=== PATIENT | male | born 1955 | race Caucasian/White ===

== ENCOUNTER 2020-09-08 23:05 | Emergency (ER) | payer MEDICARE ==
[~2020-09-08] VITALS: Ht 172.7 cm; Wt 93.0 kg
[2020-09-08] MEDS ORDERED: MORPHINE SULFATE INJ 4 MG/ML INJ 1ML IV STA (23:17)
[2020-09-08] MEDS ORDERED: ONDANSETRON HCL INJ 2MG/ML 2ML 2 MG/ML VIAL IV STA (23:19)
[2020-09-08 23:37] LABS: BASOPHILS # (AUTO) 0.1 (0.0-0.1); BASOPHILS % 0.5 % (0.0-1.0); EOSINOPHILS # (AUTO) 0.3 (0.0-0.4); EOSINOPHILS % 3.1 % (0.0-6.0); HEMATOCRIT 42.3 % (38.2-49.6); HEMOGLOBIN 14.2 g/dL (14.0-18.0); MEAN CORPUSCULAR HEMOGLOBIN 33.2 pg (28-32); MEAN CORPUSCULAR HGB CONC 33.6 g/dL (31-35); MEAN CORPUSCULAR VOLUME 98.8 fL (81-99); MONOCYTES # (AUTO) 0.8 (0.2-0.8); MONOCYTES % 8.2 % (4.4-11.3); NEUTROPHILS # (AUTO) 6.6 (2.1-6.9); NEUTROPHILS % 67.6 % (38.7-80.0); PLATELET COUNT 235 x10e3/uL (140-360); RED BLOOD COUNT 4.28 x10e6/uL (4.3-5.7); RED CELL DISTRIBUTION WIDTH 12.3 % (11.7-14.4)
[2020-09-08 23:53] LABS: ALBUMIN/GLOBULIN RATIO 1.7 (0.8-2.0); ANION GAP 13.8 mmol/L (8-16); CALCIUM 8.5 mg/dL (8.4-10.2); CREATININE, SERUM 1.23 mg/dL (0.72-1.25); POTASSIUM 3.8 mmol/L (3.5-5.1)
[2020-09-09] MEDS ORDERED: ONDANSETRON HCL INJ 2MG/ML 2ML 2 MG/ML VIAL IV STA (00:50)
[2020-09-09 03:11] LABS: AMPHETAMINES SCREEN,URINE NEGATIVE (NEGATIVE); BENZODIAZEPINES SCREEN,URINE NEGATIVE (NEGATIVE); PHENCYCLIDINE SCREEN,URINE NEGATIVE (NEGATIVE); URINE UROBILINOGEN 1 mg/dL (0.2 - 1)
[2020-09-09 03:12] LABS: CLARITY,URINE CLOUDY (CLEAR); COLOR,URINE YELLOW (YELLOW); KETONES,URINE NEGATIVE (NEGATIVE); LEUKOCYTE ESTERASE ,URINE NEGATIVE (NEGATIVE); NITRITE,URINE NEGATIVE (NEGATIVE); PROTEIN,URINE DIPSTICK NEGATIVE (NEGATIVE)
[2020-09-09 03:15] LABS: AMORPHOUS SEDIMENT,URINE MANY (FEW); BACTERIA,URINE MANY /HPF; EPITHELIAL CELLS,URINE FEW /LPF; RBC,URINE 0-5 /HPF (0-5); WBC,URINE (MAN) 0-5 /HPF (0-5)
[2020-09-09] MEDS ORDERED: MORPHINE SULFATE INJ 4 MG/ML INJ 1ML IV ONE (03:45)
[2020-09-09 03:47] VITALS: BP 129/80
== END 2020-09-09 05:15 | disposition home or self-care (01) ==
LOC: ER 23:09
DX: S46.212A Strain of muscle, fascia and tendon of other parts of biceps, left arm, initial encounter (principal); W17.89XA Other fall from one level to another, initial encounter; Y93.H3 Activity, building and construction; F17.210 Nicotine dependence, cigarettes, uncomplicated
CPT/HCPCS: 36415; 70450; 71045; 72125; 72170; 73030; 73060; 73080; 80053; 80307; 80320; 81001; 85025; 93005; 99284; J2270 ×2; J2405 ×2

== ENCOUNTER 2024-12-21 15:40 | Emergency (ER) | payer MEDICARE ==
[~2024-12-21] VITALS: Ht 172.7 cm; Wt 99.9 kg
[2024-12-21 16:32] VITALS: PULSE 96; RESP 16
[2024-12-21] MEDS: ALBUTEROL/IPRATROPIUM 3 ML NEB NEB ONE (16:32)
[2024-12-21] MEDS ORDERED: VENTOLIN HFA18 GM INH (17:39)
[2024-12-21] MEDS ORDERED: DEXAMETHASONE SOD PHOS INJ 4 MG/ML SDV ONE (17:53)
[2024-12-21 17:59] VITALS: PULSE 97; RESP 18; TEMP 97.7; O2SAT 98
[2024-12-21] MEDS: DEXAMETHASONE SOD PHOS 10 MG/1 ML VIAL IM ONE (18:02)
== END 2024-12-21 18:03 | disposition home or self-care (01) ==
LOC: FSED 15:52
DX: R05.9 Cough, unspecified (principal); B34.9 Viral infection, unspecified; J98.01 Acute bronchospasm; E78.5 Hyperlipidemia, unspecified; Z11.52 Encounter for screening for COVID-19
CPT/HCPCS: 0223U; 71045; 83518; 87400; 99283; J1100 ×2

== ENCOUNTER 2024-12-25 12:53 | Emergency (ER) | payer MEDICARE ==
[~2024-12-25] VITALS: Ht 172.7 cm; Wt 98.2 kg
[~2024-12-25 12:53] MED LIST: VENTOLIN HFA18 GM INH
[2024-12-25] MEDS ORDERED: PRILOSEC10 M1 (13:07)
[2024-12-25] MEDS ORDERED: ATORVASTATIN CA10 MG PO (13:07)
[2024-12-25] MEDS ORDERED: AZITHROMYCIN250 MG PO (15:04)
[2024-12-25] MEDS ORDERED: CORICIDIN HBP1 EAC3 PO (15:06)
[2024-12-25 15:07] VITALS: PULSE 98; RESP 18; TEMP 98.7; O2SAT 94
[2024-12-25] MEDS: AZITHROMYCIN 250 MG TAB PO ONE (15:09)
== END 2024-12-25 15:15 | disposition home or self-care (01) ==
LOC: FSED 13:01
DX: R05.9 Cough, unspecified (principal); J06.9 Acute upper respiratory infection, unspecified; R51.9 Headache, unspecified; E78.5 Hyperlipidemia, unspecified; K21.9 Gastro-esophageal reflux disease without esophagitis; M54.9 Dorsalgia, unspecified; G89.29 Other chronic pain; F17.210 Nicotine dependence, cigarettes, uncomplicated
CPT/HCPCS: 71045; 80053; 83880; 85025; 99284